=== PATIENT | male | born 1995 | race Two or more races ===

== ENCOUNTER 2021-01-02 03:55 | Emergency (ER) | payer OTHER ==
[~2021-01-02] VITALS: Ht 172.7 cm; Wt 73.3 kg
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
[2021-01-02] MEDS ORDERED: KETOROLAC 30 MG/1 ML IM ONE (05:30)
[2021-01-02] MEDS ORDERED: OXYcodone/APAP 5/325MG TABLET HOMEMEDPO ONE (05:30)
[2021-01-02] MEDS ORDERED: OXYcodone/APAP 5/325MG TABLET ONE (05:43)
[2021-01-02] MEDS ORDERED: KETOROLAC 30 MG/1 ML ONE (05:43)
--- NOTE | 2021-01-02 06:51 | NUR ---
REPORT GIVEN TO TRAVIS VARGAS
--- NOTE | 2021-01-02 06:52 | NUR ---
REport received and care assumed. Awaiting radiology results before being able to d/c home.
[2021-01-02 07:20] VITALS: BP 117/71
--- NOTE | 2021-01-02 07:21 | NUR ---
Pain rated 0/10 and states understanding of d/c instructions. Pt walked with steady gait to d/c desk with spouse.
== END 2021-01-02 07:22 | disposition home or self-care (01) ==
LOC: ED 05:46
DX: M25.512 Pain in left shoulder (principal); G89.29 Other chronic pain; R94.31 Abnormal electrocardiogram [ECG] [EKG]; I10 Essential (primary) hypertension
CPT/HCPCS: 73030; 93005; 96372; 99283; J1885

== ENCOUNTER 2021-01-23 20:31 | Emergency (ER) | payer OTHER ==
[~2021-01-23] VITALS: Ht 172.7 cm; Wt 75.0 kg
[2021-01-23 20:39] VITALS: BP 151/98
--- NOTE | 2021-01-23 23:15 | NUR ---
TASK RN: PT TO ROOM AT THIS TIME
[2021-01-23] MEDS ORDERED: ACETAMINOPHEN 500 MG TABLET PO ONE (23:30)
[2021-01-23 23:54] LABS: BASOPHILS % (AUTO) 1 % (0-1); EOSINOPHILS % (AUTO) 1 % (1-7); LYMPHOCYTES % (AUTO) 16 % (22-44); MEAN CORPUSCULAR HEMOGLOBIN 29.1 pg (27.5-34.5); MEAN PLATELET VOLUME 7.9 fL (7.4-10.4); MONOCYTES % (AUTO) 10 % (2-9); NEUTROPHILS % (AUTO) 72 % (42-75); PLATELET COUNT 278 x10^3/uL (130-400); RED BLOOD COUNT 5.02 x10^6/uL (4.38-5.82); RED CELL DISTRIBUTION WIDTH 13.6 % (9.4-14.8)
[2021-01-23 23:58] LABS: MD NO
[2021-01-24] MEDS ORDERED: ACETAMINOPHEN 500 MG TABLET ONE
[2021-01-24 00:02] LABS: ALBUMIN 3.8 g/dL (3.4-5.0); ANION GAP 4 mmol/L (5-15); CALCIUM 8.6 mg/dL (8.5-10.1); CHLORIDE 110 mmol/L (98-107); CREATININE 0.92 mg/dL (0.7-1.3)
[2021-01-24 00:06] LABS: TROPONIN I < 0.015 ng/mL (0.000-0.045)
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
== END 2021-01-24 01:10 | disposition home or self-care (01) ==
LOC: ED 01-24 01:06
DX: R07.89 Other chest pain (principal)
CPT/HCPCS: 36415; 71045; 80048; 82040; 84484; 85025; 93005; 99285